=== PATIENT | male | born 2005 | race Asian ===

== ENCOUNTER 2024-08-02 09:56 | Emergency (ER) | payer OTHER, SELFPAY ==
[2024-08-02 09:59] VITALS: BP 116/68
--- NOTE | 2024-08-02 10:41 | ED.GENMED ---
History of Present Illness
General
Chief Complaint: Male Genito-Urinary Symptoms
Source: patient
Time Seen by Provider: 08/02/24 10:09
History of Present Illness
History of Present Illness:
19-year-old male with past medical history of anxiety and depression presenting the ER with rather acute onset of left-sided testicular pain last night, improved throughout the night but present again this morning prompting him to come to the ER for
further evaluation noting that he did feel a lump behind the left testicle which was more tender with palpation. There are no other associated symptoms including urinary frequency, urgency, dysuria, hematuria, urethral discharge, lesions or sores,
testicular edema/erythema, abdominal pain, nausea or vomiting, back or flank pain. Patient did not take any medications prior to arrival. Notes that he has had intermittent testicular pain in the past but that always went away. Patient has been
sexually active with one partner but states always using protection. No other concerns presently
Past History
Past History
ED Past Medical History: Psychiatric
ED Past Surgical History: None
Social History
Tobacco: Non-smoker
Alcohol: None
Drug: None
Personal: Single
Living: with family
Employment: Student
Review of Systems
Review of Systems
All Other Systems: ROS reviewed and negative except as documented in HPI and ROS
Phy Exam
Physical Exam
Physical Exam:
GENERAL: Alert , in no apparent distress
EYE: conjunctiva clear
Head: Normocephalic atraumatic
NECK: Supple,
ENT: mmm.
LUNGS: no acute respiratory distress
ABDOMEN: Soft, nontender, nondistended
GENITOURINARY: Mild tenderness to the posterior portion of the left testicle but no discrete masses appreciated, positive cremasteric reflex bilateral, no lesions or sores, no masses or hernia appreciated
NEUROLOGICAL: Alert and oriented
SKIN: Warm and dry, skin intact.
MUSCULOSKELETAL: well perfused.
PSYCH: Normal and appropriate interaction.
Scores
Heart Failure Risk
Heart Failure Risk Score: Not Applicable
Heart Score for Chest Pain Patients
STEMI patient?: Not applicable
Withdrawal Assessment of Alcohol
Withdrawal Assessment Completed?: Not applicable
Course
Orders/Labs/Results
Orders:
Orders
08/02/24 10:09
US Scrotum Urgent
Comment:
Reason For Exam: left testicular pain
08/02/24 11:58
Urinalysis Reflex To Culture Urgent
Date Specimen was Collected: 08/02/24
Time Specimen was Collected: 11:56
Chlamydia/GC by PCR Urgent
MICHAEL Source: Urine
Specimen Description:
Source:: URINE
Date Specimen was Collected: 08/02/24
Time Specimen was Collected: 11:56
Vital Signs
Initial and Last Documented VS:
Initial Vital Signs
Temp Pulse Resp BP
98.6 F 60 16 116/68
08/02/24 09:59 08/02/24 09:59 08/02/24 09:59 08/02/24 09:59
Last Documented Vital Signs
Temp Pulse Resp BP Pulse Ox
98.6 F 60 16 116/68 98
08/02/24 09:59 08/02/24 09:59 08/02/24 09:59 08/02/24 09:59 08/02/24 10:51
MDM/Problems Addressed
Differential Diagnosis Includes:
- Testicular torsion
- Epididymitis/orchitis
- Urinary tract infection
- STI
- Varicocele
- Hydrocele
- Kidney stone/ureteral colic/renal colic
MDM/Problems Addressed:
19-year-old male presenting the ER for evaluation of left-sided testicular tenderness that began yesterday evening, somewhat improved today although still present prompting visit to the ER. Based off exam I have a little less suspicion for torsion
however we will still obtain ultrasound to rule this out. Will check urinalysis including STI panel. Disposition pending
*Radiology
Radiology exam reviewed: radiology read reviewed
*Pulse Oximetry
SaO2: 98
Oxygen Mode of Delivery: Room air
Patient hypoxic: no
*Critical Care Note
Total Time (30-74mins, 75-104mins- exclusive of procedures): Not Applicable
Patient Management
Escalation/DeEscalation of care consider admission/obs:
Ultrasound shows bilateral epididymal head cysts, no evidence for torsion. Patient pain remains under control. At this time I do think it is reasonable for patient to be discharged home. Information for urology was provided. Aware of return
precautions to the ER.
ED Attending Note
-
Portions of this chart may have been created with voice recognition software.� Occasional wrong word or��sound alike� substitutions may have occurred due to the inherent limitations of voice recognition software.
Discharge Plan
Departure
Patient Disposition: Home (Routine Discharge)
Date of Disposition: 08/02/24
Time of Disposition: 11:43
Patient with high blood pressure during this ER visit?: No
Discharge Problem:
Left testicular pain
Instructions: How to Perform a Testicular Self-Exam
Referrals:
Vj Martines MD [Active, Urology]
Nicki Tavares CRNP [Family Provider, Internal Medicine]
Interventions
Interventions:
*Risk Screen - Suicide Last Done: 08/02/24 12:12
*General Assessment Last Done: 08/02/24 12:12
*ED- Fall Risk Assessment Last Done: 08/02/24 09:59
*ED COVID-19 Vaccine History Last Done: 08/02/24 09:59
*Nursing Disposition Last Done: 08/02/24 12:12
ED-Male Genitourinary Assessment Last Done: 08/02/24 10:27
Discharge Date and Time
Discharge Date/Time: 08/02/24 12:13
Print Language: SAMI
[2024-08-02 12:26] LABS: Urine Albumin Negative (Neg - Trace); Urine Bilirubin Negative (Negative); Urine Character Clear (Clear); Urine Color Yellow; Urine Glucose Negative (Negative); Urine Ketone Negative (Negative); Urine Leukocyte Negative (Negative); Urine Nitrite Negative (Negative); Urine Occult Blood Negative (Negative); Urine Specific Gravity 1.015 (<1.030); Urine Urobilinogen Negative (Neg - 1+)
== END 2024-08-02 12:13 | disposition home or self-care (01) ==
LOC: EMR 09:56
PROVIDERS: Physician Assistant Medical; EMERGENCY PHYSICIAN Student in an Organized Health Care Education/Training Program; FAMILY PHYSICIAN Nurse Practitioner
DX: N50.812 Left testicular pain (principal); F41.9 Anxiety disorder, unspecified; F32.A Depression, unspecified
CPT/HCPCS: 99284; 76870; 81003; 87491; 87591; 93976